=== PATIENT | female | born 1970 | race Caucasian/White ===

== ENCOUNTER 2019-02-26 20:52 | Emergency (ER) | payer MEDICARE ==
[~2019-02-26] VITALS: Ht 157.5 cm; Wt 70.0 kg
[2019-02-26 20:57] VITALS: Ht 157.5 cm; Wt 70.0 kg
[2019-02-26] MEDS ORDERED: KEFLEX500 MG PO (23:54)
[2019-02-26] MEDS ORDERED: STERAPRED 5MG 65 M1 PO (23:54)
[2019-02-27 00:10] VITALS: BP 120/71
== END 2019-02-27 00:10 | disposition home or self-care (01) ==
LOC: D.ER 20:52
DX: L08.9 Local infection of the skin and subcutaneous tissue, unspecified (principal)

== ENCOUNTER 2020-04-01 14:13 | Emergency (ER) | payer MEDICARE ==
[~2020-04-01] VITALS: Ht 157.5 cm; Wt 86.2 kg
[~2020-04-01 14:13] MED LIST: KEFLEX500 MG PO; STERAPRED 5MG 65 M1 PO
[2020-04-01 14:22] VITALS: Ht 157.5 cm; Wt 86.2 kg
[2020-04-01 15:03] LABS: ANION GAP 10.6 mmol/L (8-16); CALCIUM 9.1 mg/dL (8.5-10.1); CARBON DIOXIDE 25.7 mmol/L (21.0-32.0); POTASSIUM - SERUM 3.3 mmol/L (3.5-5.1)
[2020-04-01 15:05] LABS: BASOPHILS 0.4 % (0-2); EOSINOPHILS 1.7 % (0-7); HEMATOCRIT 39.2 % (36.0-48.0); HEMOGLOBIN 12.6 g/dL (12-16); IMMATURE GRANULOCYTES 0.2 % (0-5); LYMPHOCYTES 19.4 % (15-50); MCH 26.9 pg (26.0-34.0); MCHC 32.1 g/dL (31.0-37.0); MCV 83.8 fL (80.0-100.0); MEAN PLATELET VOLUME 9.7 fL (7.4-10.4); MONOCYTES 8.3 % (2-11); PLATELET COUNT 239 10x3/uL (130-400); RBC 4.68 10x6/uL (4.00-5.40); RDW 14.6 % (11.5-14.5); WBC 8.2 10x3/uL (4.8-10.8)
[2020-04-01 15:10] LABS: ALBUMIN 3.5 g/dL (3.4-5.0); BILIRUBIN - TOTAL 0.36 mg/dL (0.2-1.3); PROTEIN - SERUM 7.7 g/dL (6.4-8.2)
[2020-04-01] MEDS ORDERED: CLEOCIN HCL300 MG PO (16:13)
[2020-04-01 17:22] VITALS: BP 150/82
== END 2020-04-01 17:23 | disposition home or self-care (01) ==
LOC: D.ER 14:13
PROVIDERS: Family Medicine
DX: L03.113 Cellulitis of right upper limb (principal); M79.641 Pain in right hand; F95.2 Tourette's disorder; E03.9 Hypothyroidism, unspecified